=== PATIENT | male | born 1945 | race Two or more races ===

== ENCOUNTER 2017-08-25 06:27 | Emergency (ER) | payer OTHER, MEDICARE ==
[~2017-08-25] VITALS: Ht 182.9 cm; Wt 72.3 kg
[2017-08-25 07:32] LABS: BASOPHIL % 0.8 % (0-2); PLATELET COUNT 308 x10^3mcL (130-400); RED CELL DISTRIBUTION WIDTH 12.9 % (11.5-14.5)
[2017-08-25 07:44] LABS: CALCIUM 8.7 mg/dL (8.5-10.1); CARBON DIOXIDE 27.8 mmol/L (21-32); CHLORIDE SERUM 97 mmol/L (98-107); CREATININE SERUM 0.8 mg/dL (0.7-1.3); GLUCOSE SERUM 97 mg/dL (74-106); SODIUM SERUM 132 mmol/L (136-145)
[2017-08-25 07:49] LABS: ALKALINE PHOSPHATASE 101 U/L (46-116); ALT/SGPT 33 U/L (16-63); AMYLASE 54 U/L (25-115); AST/SGOT 33 U/L (15-37); BILIRUBIN TOTAL 0.5 mg/dL (0.20-1.00); LIPASE 100 IU/L (73-393); TOTAL PROTEIN, SERUM 7.1 g/dL (6.4-8.2)
[2017-08-25 07:59] LABS: UA SPECIFIC GRAVITY 1.015 (1.005-1.035); microscopic required? YES; urine erythrocyte 1+ (NEGATIVE)
[2017-08-25 09:55] VITALS: BP 157/83
== END 2017-08-25 09:55 | disposition home or self-care (01) ==
LOC: ED 06:27
PROVIDERS: Specialist
DX: R10.31 Right lower quadrant pain (principal); R31.29 Other microscopic hematuria; N40.2 Nodular prostate without lower urinary tract symptoms; M54.5 Low back pain
CPT/HCPCS: 36415; 83880; Q0092